=== PATIENT | male | born 1980 ===

== ENCOUNTER 2021-03-26 21:07 | Outpatient (REF) | payer SELFPAY ==
[2021-03-26 21:29] LABS: Abs Immature Grans 0.07 10^3/uL (0.0-0.06); Absolute Basophil Count 0.05 10^3/uL (0.0-0.2); Absolute Eosinophil Count 0.13 10^3/uL (0.0-0.7); Absolute Lymphocyte Count 1.66 10^3/uL (1.2-3.4); Absolute Monocyte Count 0.55 10^3/uL (0.1-0.8); Absolute Neutrophil Count 3.27 10^3/uL (1.2-6.7); Basophils % 0.9; Eosinophils % 2.3; HGB 15.8 g/dL (13.5-17.5); Immature Grans % 1.2; MCH 29.8 pg (27.0-33.0); MCHC 34.3 % (32.0-36.0); MCV 86.6 fL (80-95); MPV 10.8 fL (8.0-11.0); Monocytes % 9.6; Nucleated RBC 0 %; Platelet Count 220 10^3/uL (130-400); RBC 5.31 10^6/uL (4.36-5.78); WBC 5.73 10^3/uL (4.4-10.8)
[2021-03-26 21:49] LABS: ALT 57 U/L (16-63); AST 32 U/L (15-37); Albumin 4.7 g/dL (3.4-5.0); Alkaline Phosphatase 46 U/L (46-116); BUN 15 mg/dL (7-18); Bilirubin, Total 0.5 mg/dL (0.2-1.0); CREATININE 1.1 mg/dL (0.70-1.30); Calcium 9.6 mg/dL (8.5-10.1); Chloride 104 mmol/L (98-107); Glucose 104 mg/dL (74-106); Potassium 3.9 mmol/L (3.5-5.1); Sodium 143 mmol/L (136-145); TSH (W/Ref FT4) 1.35 uIU/mL (0.36-3.74); Total Protein 7.8 g/dL (6.4-8.2)
== END 2021-03-26 21:08 | disposition home or self-care (01) ==
LOC: NCHCN 21:07
PROVIDERS: Visit Provider Physician Assistant Medical
DX: R10.13 Epigastric pain (principal); Z00.00 Encounter for general adult medical examination without abnormal findings
CPT/HCPCS: 80053; 84443; 85025